=== PATIENT | female | born 1960 | race Caucasian/White ===

== ENCOUNTER → 2017-12-21 | Outpatient (CLI) | payer OTHER | END | disposition home or self-care (01) | LOC: US 09:04 | DX: K76.0 Fatty (change of) liver, not elsewhere classified (principal); R11.0 Nausea | CPT/HCPCS: 76700 ==

== ENCOUNTER → 2018-01-11 | Outpatient (CLI) | payer OTHER ==
[2018-01-11] MEDS: SINCALIDE IV (09:22)
[2018-01-11] MEDS: NORMAL SALINE IV (09:22)
== END | disposition home or self-care (01) ==
LOC: NM 07:20
DX: R10.84 Generalized abdominal pain (principal); R11.0 Nausea
CPT/HCPCS: 78226; 96374; 96375; A9537; J2805

== ENCOUNTER → 2019-05-18 | Outpatient (CLI) | payer BC ==
[2015-07-18 06:00] VITALS: BP 114/82
[~2019-05-18] MED LIST: CELE200C PO; CHOL500016 PO; CYAN50004 PO; FERR325T14 PO; LEVO100T PO; METF500T16 PO; OXYC1TAB15 PO; OXYC1TAB8 PO; PARO20TA99 PO; WARF-78 PO; WARF3TAB50 PO
--- NOTE | 2019-05-18 14:22 | RAD ---
STUDY: MRI of the right knee without contrast INDICATION: Medial knee pain for the past 2 months. COMPARISON: Correlation is made to right knee radiographs from 04/16/2019. TECHNIQUE: Multiplanar MR imaging of the right knee performed without the use of intravenous or intra-articular contrast. FINDINGS: The study is degraded by motion artifact as the patient had difficulty lying still due to pain. Menisci: Free edge tearing of the medial meniscal body as well as some articular sided irregularity of the meniscus in this region. The root attachments remain intact. There is some extrusion of the medial meniscal body into the medial gutter by 3 mm. No discrete tear of the lateral meniscus. Cruciate ligaments: The ACL and PCL are intact. Collateral ligaments: Some reactive edema-like signal deep to the medial collateral ligament on account of adjacent medial meniscal extrusion and medial compartment degenerative change. No acute injury of the medial or lateral collateral ligaments. Tendons: The extensor tendon complex is intact. The additional tendons at the knee are intact. Cartilage: Patellofemoral: Extensive high-grade to full-thickness chondral loss involving much of both facets as well as extending across the median ridge with multifocal subchondral edema/cystic change. Multifocal high-grade to full-thickness trochlear cartilage loss as well. Lateral compartment: Not well evaluated due to motion though there is chondrosis of both the weightbearing and nonweightbearing aspects. Medial compartment: Multifocal high-grade/full-thickness chondral loss involving both the weightbearing and posterior nonweightbearing aspects. Subchondral edema/cystic change seen at the far posteromedial aspect of the nonweightbearing medial femoral condyle, reference images 13 through 16, series 4. Bones: No acute fracture or suspicious marrow signal. Degenerative marrow signal changes as above. Miscellaneous: Small knee joint effusion. Moderate-sized Santillan's cyst. IMPRESSION: 1. Significantly degraded study by motion artifact as the patient had difficulty lying still due to pain. 2. Free edge tearing of the medial meniscal body as well as articular sided irregularity in this region without visualized full-thickness tear. Mild extrusion of the medial meniscal body into the medial gutter mainly due medial compartment arthrosis. 3. Tricompartmental degenerative changes with extensive high-grade/full-thickness chondral loss with associated subchondral edema/cystic change with most notable involvement of the patellofemoral and medial compartments, as above. 4. Small knee joint effusion and a moderate-sized Santillan's cyst. Electronically signed by: GILBERT MURPHY MD (05/18/2019 2:19 PM) [id number]
== END | disposition home or self-care (01) ==
LOC: MRI 09:55
PROVIDERS: ATTEND Orthopaedic Surgery
DX: S83.241A Other tear of medial meniscus, current injury, right knee, initial encounter (principal); M17.11 Unilateral primary osteoarthritis, right knee; M71.21 Synovial cyst of popliteal space [Baker], right knee; M25.461 Effusion, right knee; X58.XXXA Exposure to other specified factors, initial encounter; Y93.89 Activity, other specified; Y92.89 Other specified places as the place of occurrence of the external cause; Y99.8 Other external cause status
CPT/HCPCS: 73721

== ENCOUNTER → 2019-07-24 | Outpatient (CLI) | payer BC ==
[2015-07-18 06:00] VITALS: BP 114/82
[~2019-07-24] MED LIST changes: +KETO10TA PO; +LEVO125T5 PO
[2019-07-24 14:29] LABS: BASO # 0.1 x10^3/uL (0.0-0.2); BASO % 1 % (0-3); EOS # 0.1 x10^3/uL (0.0-0.7); EOS % 2 % (0-3); HEMATOCRIT 30.5 % (36.0-47.0); LYMPH # 1.4 x10^3/uL (1.0-4.8); LYMPH % 23 % (24-48); MEAN CORPUSCULAR HEMOGLOBIN 26 pg (25-35); MEAN CORPUSCULAR HGB CONC 33 g/dL (31-37); MEAN CORPUSCULAR VOLUME 80 fL (79-100); MONO # 0.5 x10^3/uL (0.0-1.1); MONO % 8 % (0-9); NEUT # 4.2 x10^3/uL (1.8-7.7); NEUT % 66 % (31-73); PLATELET COUNT 290 x10^3/uL (140-400); RED BLOOD COUNT 3.81 x10^6/uL (3.50-5.40); RED CELL DISTRIBUTION WIDTH 16.8 % (11.5-14.5); WHITE BLOOD COUNT 6.4 x10^3/uL (4.0-11.0)
[2019-07-24 14:33] LABS: BILIRUBIN,URINE NEGATIVE (NEG); CLARITY,URINE CLEAR; COLOR,URINE YELLOW; NITRITE,URINE NEGATIVE (NEG); PH,URINE 7.5; PROTEIN,URINE NEGATIVE (NEG-TRACE); UROBILINOGEN,URINE 0.2 mg/dL (0.2 mg/dL)
--- NOTE | 2019-07-24 14:33 | EKG ---
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
[2019-07-24 14:38] LABS: PROTHROMBIN TIME PATIENT 12.6 SEC (11.7-14.0)
[2019-07-24 14:40] LABS: ALBUMIN 3.5 g/dL (3.4-5.0); CALCIUM 8.3 mg/dL (8.5-10.1); CREATININE 0.8 mg/dL (0.6-1.0); GFR 73.4
[2019-07-24 14:44] LABS: BACTERIA,URINE MANY /HPF (0-FEW); RBC,URINE 0 /HPF (0-2); SQUAMOUS EPITHELIAL CELL,UR MANY /LPF
--- NOTE | 2019-07-25 12:39 | RAD ---
CHEST PA LATERAL History: Preop knee replacement. Comparison: July 17, 2015 Findings: No consolidation or pleural effusion. Normal heart size. Right midlung calcified granuloma. Left basilar linear atelectasis or scarring. Impression: 1. No acute cardiopulmonary process. Electronically signed by: Abdulaziz Vidal DO (07/25/2019 12:36 PM) [facility]
== END | disposition home or self-care (01) ==
LOC: SURGPAT 13:22
PROVIDERS: ATTEND Orthopaedic Surgery
DX: Z01.818 Encounter for other preprocedural examination (principal); M17.11 Unilateral primary osteoarthritis, right knee; Z96.641 Presence of right artificial hip joint
CPT/HCPCS: 36415; 71046; 80048; 81001; 82040; 82306; 85025; 85610; 85651; 85730; 87086; 87641; 93005

== ENCOUNTER → 2019-08-16 | Outpatient (CLI) | payer BC ==
[2019-08-10 06:01] VITALS: BP 129/77
[~2019-08-16] MED LIST changes: +GABA-585 PO; +OXYC5CAP PO; +WARF4TAB68 PO
[2019-08-16 13:44] LABS: BASO # 0.1 x10^3/uL (0.0-0.2); BASO % 1 % (0-3); EOS # 0.2 x10^3/uL (0.0-0.7); EOS % 2 % (0-3); HEMATOCRIT 28.1 % (36.0-47.0); LYMPH # 2.2 x10^3/uL (1.0-4.8); LYMPH % 23 % (24-48); MEAN CORPUSCULAR HEMOGLOBIN 25 pg (25-35); MEAN CORPUSCULAR HGB CONC 32 g/dL (31-37); MEAN CORPUSCULAR VOLUME 78 fL (79-100); MONO # 0.9 x10^3/uL (0.0-1.1); MONO % 9 % (0-9); NEUT # 6.2 x10^3/uL (1.8-7.7); NEUT % 65 % (31-73); PLATELET COUNT 459 x10^3/uL (140-400); RED BLOOD COUNT 3.59 x10^6/uL (3.50-5.40); RED CELL DISTRIBUTION WIDTH 16.3 % (11.5-14.5); WHITE BLOOD COUNT 9.5 x10^3/uL (4.0-11.0)
== END | disposition home or self-care (01) ==
LOC: LAB 13:27
PROVIDERS: ATTEND Physician Assistant
DX: Z96.641 Presence of right artificial hip joint (principal)
CPT/HCPCS: 36415; 85025

== ENCOUNTER 2021-05-01 19:05 | Inpatient (IN) | payer BC ==
[~2021-05-01] VITALS: Ht 162.6 cm; Wt 105.6 kg
[~2021-05-01 19:05] MED LIST changes: +LEVO-101 PO; -LEVO100T PO; -WARF-78 PO; +WARF5TAB2 PO
--- NOTE | 2021-05-01 19:55 | PHYS DOC ---
Past Medical History Smoking Status: Never Smoker General Adult EDM: Chief Complaint: ABNORMAL LABS HPI: HPI: 61 yo F PMH hypothyroidim, presents to the ed sent by pcp with her , her consent concerning for normal labs with a hemoglobin of 6.3. Pt reports "anytime I move I can't breath," symptoms been persistent and worsening for the past 2 to 3 months. Patient states she has exertional dyspnea that causes palpitations and a racing heart rate. No history of cardiomyopathy, coronary artery disease or congestive heart failure. Was told her hemoglobin today was 6.3. Had a colonoscopy by Dr. Johnson in December 2020 and was vaccinated for Covid in December 2020. Patient did have Covid in May 2020. Has had 2 normal brown bowel movements today, denies any melena or hematochezia. No history of GI bleeding. Reports blood transfusion 40 years ago after childbirth. Was on oral iron but stopped it after the prescription was not continued. Patient denies any hemoptysis, hematuria or hematemesis. Review of Systems: Review of Systems: Constitutional: Denies fever or chills. [] Eyes: Denies change in visual acuity. [] HENT: Denies nasal congestion or sore throat. [] Respiratory: Denies cough or hemoptysis Cardiovascular: Denies chest pain or edema. [] GI: Denies abdominal pain, nausea, vomiting, bloody stools or diarrhea. [] : Denies dysuria or hematuria or vaginal bleeding Musculoskeletal: Denies back pain or joint pain. [] Integument: Denies rash or diaphoresis Neurologic: Denies headache, focal weakness or sensory changes. [] Endocrine: Denies polyuria or polydipsia. [] Lymphatic: Denies swollen glands. [] Psychiatric: Denies depression or anxiety. [] Heart Score: C/O Chest Pain: No Risk Factors: Risk Factors: DM, Current or recent (<one month) smoker, HTN, HLP, family h istory of CAD, obesity. Risk Scores: Score 0 - 3: 2.5% MACE over next 6 weeks - Discharge Home Score 4 - 6: 20.3% MACE over next 6 weeks - Admit for Clinical Observation Score 7 - 10: 72.7% MACE over next 6 weeks - Early Invasive Strategies Allergies: Allergies: Allergies Coded Allergies Type Severity Reaction Last Updated Verified No Known Drug Allergies 08/07/19 No Physical Exam: PE: Constitutional: Well developed, well nourished, no acute distress, non-toxic appearance. HENT: Normocephalic, atraumatic, Eyes: EOMI, conjunctiva normal, no discharge. Neck: Normal range of motion, supple, Cardiovascular: S1/2 present, regular rhythm Lungs & Thorax: Speaking in full sentences, bilateral equal chest rise, no tachypnea or increased work of breathing Abdomen: soft, no tenderness, Skin: Warm, dry, Extremities: No tenderness, no cyanosis, no lower extremity edema Neurologic: Alert and oriented X 3, normal motor function, normal sensory function, no focal deficits noted. [] Psychologic: Affect normal, judgement normal, mood normal. [] EKG: EKG: [] Radiology/Procedures: Radiology/Procedures: IMAGING REPORT Signed PATIENT: FABRICE TYUNT: [id number] : 1960 LOCATION: ER AGE: 61 SEX: F EXAM STATUS: PRE ER ORD. PHYSICIAN: BALTAZAR KAUR DO REASON: anemia PROCEDURE: CHEST AP ONLY INDICATION: Reason: anemia / Spl. Instructions: / History: COMPARISON: July 24, 2019 FINDINGS: Single view of chest obtained. Enlarged cardiomediastinal silhouette. The left lung base is obscured by the overlying cardiac silhouette. Mild haziness at the right lung base. No definite consolidation elsewhere in the lungs. IMPRESSION: * Enlarged cardiomediastinal silhouette. * Mild haziness at the lung bases which could be from overlap of structures or atelectasis but this could obscure a region of infiltrate. No definite consolidation elsewhere in the lungs. Electronically signed by: Wendy Rodriguez MD (05/01/2021 8:25 PM) [id number] DICTATED and SIGNED BY: WENDY RODRIGUEZ MD DATE: 05/01/2120223830PRP8 0 Course & Med Decision Making: Course & Med Decision Making Pertinent Labs and Imaging studies reviewed. (See chart for details) Concern for symptomatic exertional anemia in the setting of microcytic/iron deficiency anemia. 1 unit prbc ordered and I spoke to patient's primary care physician Dr. Rodriguez. Will likely schedule outpatient EGD with GI. Will admit for further medical management. Patient stable at time of admission and she and her agree with this plan. I have spoken with the patient and/or caregivers. I have explained the patient's condition, diagnosis and treatment plan based on the information available to me at this time. I have answered the patient's and/or caregivers questions and answered any concerns. The patient and/or caregivers have as good an understanding of the patient's diagnosis, condition and treatment plan as can be expected at this point. The patient has been stabilized within the capability of the emergency department. The patient will be transported for further care and management or will be moved to an observation or inpatient service. I have communicated with the staff or medical practitioner taking over this patient's care. Char Disclaimer: Char Disclaimer: This electronic medical record was generated, in whole or in part, using a voice recognition dictation system. Departure Departure Impression: Primary Impression: Exertional dyspnea Additional Impression: Microcytic anemia Disposition: ADMITTED INPATIENT Admitting Physician: Kendell Rodriguez Condition: STABLE Referrals: KENDELL RODRIGUEZ MD (PCP) BALTAZAR KAUR DO May 01, 2021 19:54
[2021-05-01 20:05] LABS: BASO # 0.1 x10^3/uL (0.0-0.2); BASO % 1 % (0-3); EOS # 0.1 x10^3/uL (0.0-0.7); EOS % 1 % (0-3); LYMPH # 2.3 x10^3/uL (1.0-4.8); LYMPH % 30 % (24-48); MEAN CORPUSCULAR HEMOGLOBIN 21 pg (25-35); MEAN CORPUSCULAR HGB CONC 31 g/dL (31-37); MEAN CORPUSCULAR VOLUME 69 fL (79-100); MONO # 0.7 x10^3/uL (0.0-1.1); MONO % 10 % (0-9); NEUT # 4.5 x10^3/uL (1.8-7.7); NEUT % 58 % (31-73); PLATELET COUNT 351 x10^3/uL (140-400); RED BLOOD COUNT 2.98 x10^6/uL (3.50-5.40); RED CELL DISTRIBUTION WIDTH 18.3 % (11.5-14.5); WHITE BLOOD COUNT 7.7 x10^3/uL (4.0-11.0)
[2021-05-01 20:07] LABS: HEMOGLOBIN 6.3 g/dL (12.0-15.5)
[2021-05-01 20:08] LABS: HEMATOCRIT 20.4 % (36.0-47.0)
[2021-05-01 20:16] LABS: CALCIUM 8.7 mg/dL (8.5-10.1); CREATININE 0.9 mg/dL (0.6-1.0); GFR 63.7; POTASSIUM 4.1 mmol/L (3.5-5.1)
[2021-05-01 20:22] LABS: ALBUMIN 3.6 g/dL (3.4-5.0); ALBUMIN/GLOBULIN RATIO 1.2 (1.0-1.7); TOTAL BILIRUBIN 0.3 mg/dL (0.2-1.0); TOTAL PROTEIN 6.7 g/dL (6.4-8.2)
[2021-05-01 20:27] LABS: PROTHROMBIN TIME PATIENT 15.3 SEC (11.7-14.0)
--- NOTE | 2021-05-01 20:28 | RAD ---
INDICATION: Reason: anemia / Spl. Instructions: / History: COMPARISON: July 24, 2019 FINDINGS: Single view of chest obtained. Enlarged cardiomediastinal silhouette. The left lung base is obscured by the overlying cardiac silhouette. Mild haziness at the right lung base. No definite consolidation elsewhere in the lungs. IMPRESSION: * Enlarged cardiomediastinal silhouette. * Mild haziness at the lung bases which could be from overlap of structures or atelectasis but this could obscure a region of infiltrate. No definite consolidation elsewhere in the lungs. Electronically signed by: Hans Franz MD (05/01/2021 8:25 PM) [id number]
[2021-05-01 23:00] VITALS: BP 117/53
[2021-05-01] MEDS ORDERED: CONTRAST GIVEN. MC PRN (23:30)
[2021-05-01] MEDS ORDERED: IOHEXOL 350 MG/ML 100 ML VIAL. IV ONE (23:30)
[2021-05-01 23:45] VITALS: BP 91/45
[2021-05-02] VITALS (7 sets, daily range): BP systolic 92–163; BP diastolic 50–67
--- NOTE | 2021-05-02 00:05 | RAD ---
EXAM: CT ANGIOGRAPHY OF THE CHEST WITH AND WITHOUT CONTRAST. HISTORY: Left chest pain. TECHNIQUE: Computed tomographic angiography of the chest was performed before and after the intraveno us administration of iodinated contrast. 3-D maximum intensity projections were also performed. One o r more of the following individualized dose reduction techniques were utilized for this examination: 1. Automated exposure control. 2. Adjustment of the mA and/or kV according to patient size. 3. Use of iterative reconstruction technique. COMPARISON: None. FINDINGS: Images of the upper abdomen reveal no acute abnormality. There are calcified granulomas in the spleen. There is a large hiatal hernia. Bone windows reveal no suspicious lesions. No pulmonary emboli are identified. There is no aortic dissection or aneurysm. There are no pathologically enlarged mediastinal or axillary lymph nodes. There is no pleural or niurka cardial effusion. The heart is not enlarged. Lung windows reveal no infiltrates. There is mild basilar atelectasis. IMPRESSION: 1. No pulmonary embolism. 2. Large hiatal hernia. Electronically signed by: Daryl Sanabria MD (05/02/2021 12:02 AM) [facility]
[2021-05-02] MEDS ORDERED: LEVO137T3 PO (00:07)
[2021-05-02] MEDS ORDERED: PRAM0.255 PO (00:11)
[2021-05-02] MEDS ORDERED: ONDANSETRON ODT 4 MG TAB.RAPDIS. PO ONE (03:15)
[2021-05-02] MEDS ORDERED: PRAMIPEXOLE 0.25 MG TABLET. PO PRN (08:45)
[2021-05-02] MEDS ORDERED: ACETAMINOPHEN 325 MG TABLET. PO PRN (08:45)
[2021-05-02] MEDS ORDERED: PARoxetine 10 MG TABLET PO SCH (09:00)
[2021-05-02] MEDS ORDERED: LEVOTHYROXINE 137 MCG TABLET PO SCH (09:00)
[2021-05-02] MEDS ORDERED: FERR325T14 PO (12:18)
[2021-05-02 12:44] LABS: BASO % 1 % (0-3); EOS # 0.1 x10^3/uL (0.0-0.7); EOS % 2 % (0-3); HEMATOCRIT 22.9 % (36.0-47.0); HEMOGLOBIN 7.2 g/dL (12.0-15.5); LYMPH # 1.4 x10^3/uL (1.0-4.8); LYMPH % 27 % (24-48); MEAN CORPUSCULAR HEMOGLOBIN 23 pg (25-35); MEAN CORPUSCULAR HGB CONC 32 g/dL (31-37); MEAN CORPUSCULAR VOLUME 71 fL (79-100); MONO # 0.5 x10^3/uL (0.0-1.1); MONO % 10 % (0-9); NEUT % 60 % (31-73); PLATELET COUNT 315 x10^3/uL (140-400); RED BLOOD COUNT 3.21 x10^6/uL (3.50-5.40); RED CELL DISTRIBUTION WIDTH 18.9 % (11.5-14.5)
--- NOTE | 2021-05-02 12:47 | PDOC2 ---
CONSULT Date of Consult Date of Consult DATE: 05/02/21 TIME: 12:42 Reason for Consult Reason for Consult: anemia History of Present Illness Reason for Visit: This is a 61-year-old female who presents with an abnormal labs showing significant anemia with hemoglobin of 6.3. She is noticed over the past few days to weeks increasing dyspnea on exertion and irregular heartbeat. She had some dark stools in the past but has not been on a regular basis. She relates that she has been anemic in the past but never to this degree. No one's been able to figure out why she is anemic. She does not menstruate. She does not have any overt bleeding anywhere except the dark stools as mentioned above. She does describe regular indigestion and heartburn for which she takes [id number] medications. Also she describes some nocturnal reflux symptoms when she lays flat in bed. She was not aware of her hiatal hernia which was found on her CT last night. She has not had a previous EGD but did have a screening colonoscopy earlier this year that was reportedly negative. Because she was known to be anemic a celiac blood test was recommended and apparently was ordered but we don't have those records. She denies dysphagia, hematemesis, hematochezia, change in bowel pattern. Past Medical History Heme/Onc: Anemia NOS Endocrine: Hypothyroidism Past Surgical History Past Surgical History: Hysterectomy Social History ALCOHOL: occassional Drugs: None Domestic Violence: Neg Current Problem List Problem List Problems Medical Problems: (1) Exertional dyspnea Status: Acute (2) Microcytic anemia Status: Acute Current Medications Current Medications Current Medications Iohexol (Omnipaque 350 Mg/ml) 100 ml 1X ONCE IV Last administered on 05/01/21at 23:26; Start 05/01/21 at 23:30; Stop 05/01/21 at 23:31; Status DC Info (CONTRAST GIVEN -- Rx MONITORING) 1 each PRN DAILY PRN MC SEE COMMENTS; Start 05/01/21 at 23:30; Stop 05/03/21 at 23:29 Ondansetron HCl (Zofran Odt) 4 mg 1X ONCE PO Last administered on 05/02/21at 03:28; Start 05/02/21 at 03:15; Stop 05/02/21 at 03:16; Status DC Acetaminophen (Tylenol) 650 mg PRN Q6HRS PRN PO MILD PAIN / TEMP > 100.3'F Last administered on 05/02/21at 09:07; Start 05/02/21 at 08:45 Levothyroxine Sodium (Synthroid) 137 mcg DAILY06 PO Last administered on 05/02/21at 09:07; Start 05/02/21 at 09:00 Paroxetine HCl (Paxil) 30 mg DAILY PO ; Start 05/02/21 at 09:00 Pramipexole Dihydrochloride (miraPEX) 0.25 mg PRN QHS PRN PO restless leg syndrome; Start 05/02/21 at 08:45 Active Scripts Active Ferrous Sulfate 325 Mg Tablet 1 Tab PO BID 30 Days Reported Mirapex (Pramipexole Di-Hcl) 0.25 Mg Tablet 1 Tab PO DAILY PRN Levothyroxine Sodium 137 Mcg Tablet 1 Tab PO DAILY Paxil (Paroxetine Hcl) 20 Mg Tablet 30 Mg PO DAILY Last dose given: 8:30 a.m. Next dose due: 07/19/15 at 08:30 a.m. Allergies Allergies: Coded Allergies: No Known Drug Allergies (Unverified , 08/07/19) Physical Exam General: Alert, Oriented X3, Cooperative HEENT: Atraumatic, PERRLA Lungs: Clear to auscultation Heart: Regular rate, Normal S1, Normal S2 Abdomen: Normal bowel sounds, Soft, No tenderness, No hepatosplenomegaly, No masses Extremities: No clubbing Neuro: Normal speech Psych/Mental Status: Mental status NL Vitals VITALS Vital Signs Date Time Temp Pulse Resp B/P (MAP) Pulse Ox O2 Delivery O2 Flow Rate FiO2 05/02/21 11:00 98.4 65 16 107/59 (75) 96 98.4 05/02/21 07:00 Room Air Labs Labs Laboratory Tests Test 05/01/21 19:55 05/01/21 20:05 White Blood Count 7.7 x10^3/uL (4.0-11.0) Red Blood Count 2.98 x10^6/uL (3.50-5.40) Hemoglobin 6.3 g/dL (12.0-15.5) Hematocrit 20.4 % (36.0-47.0) Mean Corpuscular Volume 69 fL (79-100) Mean Corpuscular Hemoglobin 21 pg (25-35) Mean Corpuscular Hemoglobin Concent 31 g/dL (31-37) Red Cell Distribution Width 18.3 % (11.5-14.5) Platelet Count 351 x10^3/uL (140-400) Neutrophils (%) (Auto) 58 % (31-73) Lymphocytes (%) (Auto) 30 % (24-48) Monocytes (%) (Auto) 10 % (0-9) Eosinophils (%) (Auto) 1 % (0-3) Basophils (%) (Auto) 1 % (0-3) Neutrophils # (Auto) 4.5 x10^3/uL (1.8-7.7) Lymphocytes # (Auto) 2.3 x10^3/uL (1.0-4.8) Monocytes # (Auto) 0.7 x10^3/uL (0.0-1.1) Eosinophils # (Auto) 0.1 x10^3/uL (0.0-0.7) Basophils # (Auto) 0.1 x10^3/uL (0.0-0.2) Sodium Level 143 mmol/L (136-145) Potassium Level 4.1 mmol/L (3.5-5.1) Chloride Level 105 mmol/L (98-107) Carbon Dioxide Level 25 mmol/L (21-32) Anion Gap 13 (6-14) Blood Urea Nitrogen 15 mg/dL (7-20) Creatinine 0.9 mg/dL (0.6-1.0) Estimated GFR (Cockcroft-Gault) 63.7 BUN/Creatinine Ratio 17 (6-20) Glucose Level 90 mg/dL (70-99) Calcium Level 8.7 mg/dL (8.5-10.1) Total Bilirubin 0.3 mg/dL (0.2-1.0) Aspartate Amino Transf (AST/SGOT) 15 U/L (15-37) Alanine Aminotransferase (ALT/SGPT) 32 U/L (14-59) Alkaline Phosphatase 118 U/L (46-116) Total Protein 6.7 g/dL (6.4-8.2) Albumin 3.6 g/dL (3.4-5.0) Albumin/Globulin Ratio 1.2 (1.0-1.7) Prothrombin Time 15.3 SEC (11.7-14.0) Prothromb Time International Ratio 1.2 (0.8-1.1) Activated Partial Thromboplast Time 28 SEC (24-38) Laboratory Tests Test 05/01/21 19:55 05/01/21 20:05 White Blood Count 7.7 x10^3/uL (4.0-11.0) Red Blood Count 2.98 x10^6/uL (3.50-5.40) Hemoglobin 6.3 g/dL (12.0-15.5) Hematocrit 20.4 % (36.0-47.0) Mean Corpuscular Volume 69 fL (79-100) Mean Corpuscular Hemoglobin 21 pg (25-35) Mean Corpuscular Hemoglobin Concent 31 g/dL (31-37) Red Cell Distribution Width 18.3 % (11.5-14.5) Platelet Count 351 x10^3/uL (140-400) Neutrophils (%) (Auto) 58 % (31-73) Lymphocytes (%) (Auto) 30 % (24-48) Monocytes (%) (Auto) 10 % (0-9) Eosinophils (%) (Auto) 1 % (0-3) Basophils (%) (Auto) 1 % (0-3) Neutrophils # (Auto) 4.5 x10^3/uL (1.8-7.7) Lymphocytes # (Auto) 2.3 x10^3/uL (1.0-4.8) Monocytes # (Auto) 0.7 x10^3/uL (0.0-1.1) Eosinophils # (Auto) 0.1 x10^3/uL (0.0-0.7) Basophils # (Auto) 0.1 x10^3/uL (0.0-0.2) Sodium Level 143 mmol/L (136-145) Potassium Level 4.1 mmol/L (3.5-5.1) Chloride Level 105 mmol/L (98-107) Carbon Dioxide Level 25 mmol/L (21-32) Anion Gap 13 (6-14) Blood Urea Nitrogen 15 mg/dL (7-20) Creatinine 0.9 mg/dL (0.6-1.0) Estimated GFR (Cockcroft-Gault) 63.7 BUN/Creatinine Ratio 17 (6-20) Glucose Level 90 mg/dL (70-99) Calcium Level 8.7 mg/dL (8.5-10.1) Total Bilirubin 0.3 mg/dL (0.2-1.0) Aspartate Amino Transf (AST/SGOT) 15 U/L (15-37) Alanine Aminotransferase (ALT/SGPT) 32 U/L (14-59) Alkaline Phosphatase 118 U/L (46-116) Total Protein 6.7 g/dL (6.4-8.2) Albumin 3.6 g/dL (3.4-5.0) Albumin/Globulin Ratio 1.2 (1.0-1.7) Prothrombin Time 15.3 SEC (11.7-14.0) Prothromb Time International Ratio 1.2 (0.8-1.1) Activated Partial Thromboplast Time 28 SEC (24-38) Images Images EXAM: CT ANGIOGRAPHY OF THE CHEST WITH AND WITHOUT CONTRAST. HISTORY: Left chest pain. TECHNIQUE: Computed tomographic angiography of the chest was performed before and after the intravenous administration of iodinated contrast. 3-D maximum intensity projections were also performed. One or more of the following individualized dose reduction techniques were utilized for this examination: 1. Automated exposure control. 2. Adjustment of the mA and/or kV according to patient size. 3. Use of iterative reconstruction technique. COMPARISON: None. FINDINGS: Images of the upper abdomen reveal no acute abnormality. There are calcified granulomas in the spleen. There is a large hiatal hernia. Bone windows reveal no suspicious lesions. No pulmonary emboli are identified. There is no aortic dissection or aneurysm. There are no pathologically enlarged mediastinal or axillary lymph nodes. There is no pleural or pericardial effusion. The heart is not enlarged. Lung windows reveal no infiltrates. There is mild basilar atelectasis. IMPRESSION: 1. No pulmonary embolism. 2. Large hiatal hernia. Assessment/Plan Assessment/Plan Profound microcytic anemia. She has had an anemia in the past but never to this degree. She had some dark stools in the past. She does have indigestion, heartburn and acid reflux symptoms and now by CT is known to have a large hiatal hernia. It is feasible that upper GI blood loss occultly has caused this anemia from esophagitis, Kang's, peptic ulcer disease etc. She could also have celiac disease and apparently that has been pursued but we don't know the results Fortunately she had a recent colonoscopy which excludes polyps or cancer as a contributor to this anemia. Plan: Agree with transfusion Need to start on iron supplementation Need to start on daily pantoprazole Elective EGD is warranted. This will be arranged in the outpatient setting with Dr. Mckinnon after discharge XIN CHOW MD May 02, 2021 12:47
[2021-05-02] MEDS ORDERED: PANTOPRAZOLE 40 MG TABLET.DR. PO SCH (13:00)
--- NOTE | 2021-05-02 13:06 | DS ---
DATE OF DISCHARGE: 05/02/2021 PRIMARY DIAGNOSIS: Symptomatic microcytic anemia. ADDITIONAL DIAGNOSES: Hypothyroidism, restless legs. CHIEF COMPLAINT AND HISTORY OF PRESENT ILLNESS: This 61-year-old female admitted with exertional dyspnea, lightheadedness, palpitations and a hemoglobin of 6.3 with microcytic RBC indices. She admitted to occasional melena off and on over the last month and had had a colonoscopy back in December of this year that was unremarkable. SUMMARY OF STAY: The patient was admitted, typed, crossed and transfused with 1 unit of packed red blood cells. Repeat H and H were pending at the time of this dictation, but were ordered as I tried to order it again and stated it had already been ordered. She was symptomatically much improved. It was felt she would need further outpatient GI workup including EGD and that will be set up on followup this coming week in the office with Dr. Franz. DISPOSITION: The patient is discharged to home. DIET: Regular diet. ACTIVITY: As tolerated. FOLLOWUP: Office of Dr. Franz here in the next week. HOME MEDICATIONS: Will be that of regular home meds plus ferrous sulfate 325 b.i.d. with food. CECILIA/SARAI DR: CECILIA/lorenza TID: [id number] CC: KENDELL FRANZ MD
--- NOTE | 2021-05-02 13:58 | NUR ---
Discharge Note: FABRICE PERSON J5 BRIMLEY Discharge instructions and discharge home medications reviewed with the patient and a copy given. All questions have been answered and understanding verbalized. The following instructions and handouts were given: Home meds as directed EGD as out patient with Dr. Mckinnon Follow up with Dr. Franz next week Discontinued lines and drains: peripheral IV intact. patient tolerated removal, no complications noted Patient discharged to home with self care ambulatory accompanied by the patient's spouse, Dr. Person at 1345. Addendum: 05/02/21 at 1528 by ROSALIO MONTANA RN Pantoprazole 40 mg tab prescription called to [facility] pharmacy at 1523.
[2021-05-02 14:00] LABS: ANISOCYTOSIS SLIGHT; HYPOCHROMIA MOD; MICROCYTOSIS MOD; OVALOCYTES MOD; PLT ESTIMATE ADEQUATE (ADEQUATE); POLYCHROMASIA SLIGHT; TEAR DROP CELLS OCC
--- NOTE | 2021-05-02 14:08 | HP ---
ADMIT DATE: 05/02/2021 ADMISSION HISTORY AND PHYSICAL CHIEF COMPLAINT AND HISTORY OF PRESENT ILLNESS: This 61-year-old female with a past history of hypothyroidism, presented to the Emergency Room with a known hemoglobin of 6.3 and no exertion potential whatsoever. She will get very short of breath and lightheaded with any sort of activity and this has been going on for a little while. She does relate some melanotic stools over the last month or so intermittently. When questioned about abdominal pain, she has had some sort of upper abdominal swishing like a washing machine off and on, but denies it is related to food in anyway. She was admitted for symptomatic microcytic anemia. Interestingly, she has had a colonoscopy back earlier this year, which was negative for any sort of pathology. PAST MEDICAL HISTORY: Remarkable for hypothyroidism, restless legs. MEDICATIONS: Brought with the patient, listed on the computer and have been addressed. ALLERGIES: She has no known drug allergies. SOCIAL HISTORY: Noncontributory. FAMILY HISTORY: Noncontributory. REVIEW OF SYSTEMS: As mentioned above. PHYSICAL EXAMINATION: GENERAL: She is a well-developed, well-nourished female who does appear still somewhat pale. VITAL SIGNS: Stable. She is afebrile. HEAD, EYES, EARS, NOSE AND THROAT: Remarkable for pallor of conjunctivae. NECK: Supple without thyromegaly. CHEST: Clear to auscultation and percussion. HEART: Regular rate and rhythm without S3, S4 or murmur. ABDOMEN: Soft, nontender, without hepatosplenomegaly or masses. EXTREMITIES: Without cyanosis, clubbing or edema. NEUROLOGIC: She is intact. IMPRESSION: Symptomatic iron deficiency anemia with improved symptomatology following transfusion of 1 unit packed red blood cells. PLAN: Repeat CBC is ordered for this morning, after that is available or even before she can be dismissed. Follow up as an outpatient where she will likely need an EGD. MARNE/DAGO DR: Ihsan TID: [id number]
== END 2021-05-02 13:45 | disposition home or self-care (01) | DRG 812 ==
LOC: ER 19:05 → 5 NORTH 22:01
PROVIDERS: ADMIT Family Medicine; ATTEND Family Medicine
PROC: 30233N1 Transfusion of Nonautologous Red Blood Cells into Peripheral Vein, Percutaneous Approach (ICD-10-PCS; principal; 2021-05-01)
DX: D50.0 Iron deficiency anemia secondary to blood loss (chronic) (principal); E03.9 Hypothyroidism, unspecified; G25.81 Restless legs syndrome; K21.00 Gastro-esophageal reflux disease with esophagitis, without bleeding; Z86.16 Personal history of COVID-19; Z90.710 Acquired absence of both cervix and uterus
CPT/HCPCS: 36415; 71045; 71275; 80053; 85025; 85610; 85730; 86850; 86900; 86901; 86920; P9016; Q9967; 99285-25; G0378

== ENCOUNTER → 2021-12-28 | Outpatient (CLI) | payer BC ==
[2021-05-02 11:00] VITALS: BP 107/59
[~2021-12-28] MED LIST changes: +CHOL500050 PO; +LEVO137T3 PO; +LEVO175T5 PO; +MULT-445 PO; +PARO30TA3 PO; +PRAM0.255 PO
== END ==
LOC: OPSVCOP 14:43
PROVIDERS: ATTEND Podiatrist
DX: Z01.812 Encounter for preprocedural laboratory examination (principal); Z20.822 Contact with and (suspected) exposure to COVID-19; M76.822 Posterior tibial tendinitis, left leg; M21.40 Flat foot [pes planus] (acquired), unspecified foot; S93.429A Sprain of deltoid ligament of unspecified ankle, initial encounter; X58.XXXA Exposure to other specified factors, initial encounter; Y93.89 Activity, other specified; Y92.89 Other specified places as the place of occurrence of the external cause; Y99.8 Other external cause status
CPT/HCPCS: U0003

== ENCOUNTER 2021-12-30 07:51 | Day surgery (SDC) | payer BC ==
[~2021-12-30] VITALS: Ht 166.4 cm; Wt 90.7 kg
[~2021-12-30 07:51] MED LIST changes: +BUPIVACAINE MPF 0.25% 30 ML VIAL. ONE; +HYDROmorphone 2 MG/ML INJ. IVP PRN; +IV RINGERS,LACTATED 1000ML 1,000 ML IV SCH; +MORPHINE SULFATE 2 MG/ML INJ. IVP PRN; +PROCHLORPERAZINE 10 MG/2 ML VIAL. IVP PRN; +fentaNYL PF VIAL 100 MCG/2 ML VIAL IVP PRN
[2021-12-30] MEDS ORDERED: MIDAZOLAM HCL/PF 2 MG/2 ML VIAL. ONE (08:56)
[2021-12-30] MEDS ORDERED: ROPIVacaine 0.5% PF 20 ML VIAL. ONE (08:56)
--- NOTE | 2021-12-30 09:15 | PDOC2 ---
CONSULT Date of Consult Date of Consult DATE: 12/30/21 TIME: 09:11 History of Present Illness Reason for Visit: Patient is here today for left ankle surgery with Dr. Urbina Doing well when seen, no complaints. Denies any hx DM, CAD, CHF, CVA, Renal failure Past Medical History Heme/Onc: Anemia NOS Endocrine: Hypothyroidism Past Surgical History Past Surgical History: Hysterectomy Social History ALCOHOL: occassional Drugs: None Domestic Violence: Neg Current Medications Current Medications Current Medications Fentanyl Citrate (Fentanyl 2ml Vial) 25 mcg PRN Q5MIN PRN IVP MILD PAIN 1-3; Start 12/30/21 at 06:00; Stop 12/31/21 at 05:59 Fentanyl Citrate (Fentanyl 2ml Vial) 50 mcg PRN Q5MIN PRN IVP MODERATE PAIN 4- 6; Start 12/30/21 at 06:00; Stop 12/31/21 at 05:59 Morphine Sulfate (Morphine Sulfate) 1 mg PRN Q10MIN PRN IVP SEVERE PAIN 7-10; Start 12/30/21 at 06:00; Stop 12/31/21 at 05:59 Ringer's Solution 1,000 ml @ 30 mls/hr Q24H IV ; Start 12/30/21 at 06:00; Stop 12/30/21 at 17:59 Hydromorphone HCl (Dilaudid) 0.5 mg PRN Q10MIN PRN IVP SEVERE PAIN 7-10, 2nd CHOICE; Start 12/30/21 at 06:00; Stop 12/31/21 at 05:59 Prochlorperazine Edisylate (Compazine) 5 mg PACU PRN PRN IVP NAUSEA, MRX1; Start 12/30/21 at 06:00; Stop 12/31/21 at 05:59 Cefazolin Sodium/ Dextrose 50 ml @ 100 mls/hr 1X PREOP PRN IV PRIOR TO PROCEDURE; Start 12/30/21 at 06:00; Stop 12/30/21 at 18:00 Bupivacaine HCl (Sensorcaine Mpf 0.25%) 30 ml STK-MED ONCE .ROUTE ; Start 12/30/21 at 07:18; Stop 12/30/21 at 07:18; Status DC Midazolam HCl (Versed) 2 mg STK-MED ONCE .ROUTE ; Start 12/30/21 at 08:56; Stop 12/30/21 at 08:56; Status DC Ropivacaine (Naropin 0.5%) 20 ml STK-MED ONCE .ROUTE ; Start 12/30/21 at 08:56; Stop 12/30/21 at 08:56; Status DC Active Scripts Active Reported Multivitamins (Multivitamin) 1 Each Tablet 1 Tab PO DAILY Vitamin D3 (Cholecalciferol (Vitamin D3)) 1,250 Mcg Capsule 5,000 Mcg PO DAILY Paroxetine Hcl 30 Mg Tablet 1 Tab PO DAILY Levothyroxine Sodium 175 Mcg Tablet 1 Tab PO DAILY Mirapex (Pramipexole Di-Hcl) 0.25 Mg Tablet 1 Tab PO DAILY PRN Allergies Allergies: Coded Allergies: No Known Drug Allergies (Unverified , 12/24/21) Physical Exam General: Alert, Oriented X3, Cooperative HEENT: PERRLA Lungs: Clear to auscultation Heart: Regular rate, Normal S1 Abdomen: Normal bowel sounds, Soft, No tenderness Extremities: Normal pulses Vitals VITALS Vital Signs Date Time Temp Pulse Resp B/P (MAP) Pulse Ox O2 Delivery O2 Flow Rate FiO2 12/30/21 08:31 98.2 78 15 150/80 93 Room Air 98.2 Assessment/Plan Assessment/Plan Left Ankle Surgery Patient here for left ankle surgery. Ok to proceed from hospitalist perspective. GRISEL Danielle MD Dec 30, 2021 09:15
[2021-12-30] MEDS ORDERED: LIDOCAINE 2% PF 5 ML VIAL. ONE (09:34)
[2021-12-30] MEDS ORDERED: ONDANSETRON PF 4 MG/2 ML VIAL. ONE (09:34)
[2021-12-30] MEDS ORDERED: SEVOFLURANE > 120 MINUTES. IH ONE (09:34)
[2021-12-30] MEDS ORDERED: PROPOFOL 10 MG/ML (20ML) VIAL. IV ONE (09:34)
[2021-12-30] MEDS ORDERED: DEXAMETHASONE SOD PHOS 4 MG/ML VIAL ONE (09:34)
[2021-12-30] MEDS ORDERED: fentaNYL PF VIAL 100 MCG/2 ML VIAL ONE ×2 (09:35→14:40)
[2021-12-30] MEDS ORDERED: KETAMINE HCL IN NACL, ISO-OSM 50 MG/5 ML SYRINGE ONE (09:53)
[2021-12-30] MEDS ORDERED: PHENYLEPHRINE in 0.9% NACL PF 1 MG/10 ML SYRINGE. IV ONE (09:58)
[2021-12-30] MEDS ORDERED: PHENYLEPHRINE 10 MG/ML VIAL. ONE (10:03)
[2021-12-30] MEDS ORDERED: HYDROmorphone 2 MG/ML INJ. ONE (11:24)
[2021-12-30] MEDS ORDERED: GELATIN SPONGE SIZE 100. ONE (11:42)
[2021-12-30] MEDS ORDERED: FAMOTIDINE 20 MG/2 ML VIAL ONE (12:32)
--- NOTE | 2021-12-30 13:34 | PDOC4 ---
OPERATIVE NOTE Date: Date: Dec 30, 2021 Pre-Op Diagnosis: Left pes planus deformity, subsequent PTTD, stage II/III, ankle equinus Post-Op Diagnosis: Same as above Procedure Performed: Left ALLISON, cotton osteotomy, medializing calcaneal osteotomy, Garcia osteotomy, PT tendon debridement Surgeon: Pardeep Noble DPM Anesthesia Type: General anesthesia with a popliteal/saphenous block preoperatively Blood Loss: 50 cc Specimans Obtained: None Findings: Upon weightbearing, the calcaneus everted to 5 degrees, increased calcaneal cuboid abduction angle, TN uncoverage over 50%, reduced arch height more so clinically than radiographically. No significant periarticular osteophyte, arthrosis changes to the CC J. Complications: None Operative Note: Under mild sedation, and Left lower extremity popliteal/saphenous block preoperatively, patient was brought into the operating room and placed on the operating table in the supine position. A formal timeout was performed to confirm patient's identity, procedure and procedure site. Then the following IV anesthesia and antibiotics, a well-padded left thigh tourniquet was placed. The left lower extremity was then prepped, scrubbed and draped using aseptic techniques. The left lower extremity was then exsanguinated and then the pressure was inflated to 250 mmHg. Then the incision was directed to the left posterior distal Achilles where three x 3mm stab incisions were carried out at 2 cm, 5 cm and 8 cm proximal from the Achilles insertion site. Then using a [place] blade, staggered and mik-tenotomy was performed at the medial, lateral and medial aspect of the Achilles tendon sequentially. Then passive ankle joint dorsiflexion was noted at 0 degree neutral. The surgical sites were irrigated with copious saline solution and closed with 4-0 nylon. The attention was then directed to the lateral calcaneus. Under intraoperative x-ray, a provisional calcaneal osteotomy was marked on the skin, at least 1.5 cm posterior to the fibula/peroneal tendons in 1.1 cm anterior to the calcaneal tuberosity. Then a 0.5 to 1 cm full-thickness skin incision was made at the lateral central calcaneal body overlying the provisional osteotomy marked on skin. Then the incision was carried deep to periosteum layer with a mosquito forcep. Then the soft tissue and periosteum layer was elevated off the provisional osteotomy site with a bone elevator. Then Arthrex 3 x 20 mm bur operating at 6000 RPM was introduced to the skin incision. Following four- quadrant MIS osteotomy and under intraoperative x-ray guidance, the posterior tuber of the calcaneus was mobilized without any remarks of medial flexor tendon or neurovascular deficit. Then approximately 0.5 -1 cm medializing shift of the posterior calcaneal tuber was achieved. Using standard AO technique, 2 x 5.0 mm fully threaded screws were used to fix and stabilize the posterior calcaneal tuber fragment. Care was taken and verified that the screws were in adequate length without violating subtalar joint and indeed within the calcaneal tuber upon axial view. The surgical sites were irrigated with copious saline and closed with 4-0 nylon. The attention was then directed to the anterior calcaneal process. A curvilinear incision was made over lying the dorsal lateral aspect of the anterior process extending from the CC joint to the middle facet of the subtalar joint. Incision was carried deep with a combination of sharp and blunt dissection with care to protect and retract all the neurovascular bundles. The peroneal tendons were carefully retracted plantarly and protected in the anterior talar process was visualized. A guidepin was introduced from lateral to medial parallel to the CC joint and also perpendicular to the lateral calcaneal wall, proximally 1.3 cm proximal to the CC joint but also found anterior to the middle subtalar facet based on intraoperative x-ray. Then a sagittal saw was used to osteomize along the guidepin with care to protect and preserve the medial cortex. The osteotomy site was opened up with a pin distrac tor and a 10 mm lateral based wedge was measured and determined fit to achieve a straight lateral column. Care was taken to assure the anterior calcaneal fragment did not migrate dorsally and the CC joint was preserved. The metallic graft was also tempted in and fitted well without any prominence circumferentially. Then the metallic graft was stabilized with an Intra-plant fully threaded metallic screw, 2.4mm, to prevent graft migration. Then the surgical site was irrigated with copious saline solution and closed in layers with 4-0 Monocryl and 4-0 nylon. Then the attention was directed to the dorsal first cuneiform. A linear i ncision was made medial to the EHL overlying the first cuneiform. The incision was carried to deep with a combination of sharp and blunt dissection with care to protect and retract all the neurovascular bundles. Then a guidepin was introduced from dorsal to plantar at the midportion of the first cuneiform parallel to the first TMT. Adequate and satisfactory hardware placement was confirmed on x-ray and then a sagittal saw was used to osteotomize the dorsal first cuneiform with care to preserve the plantar cortex and the second metatarsal base. A 7.5 mm metallic graft was used to achieve adequate plantar flexion at the first ray and medial column and the forefoot was noted balanced to the right foot. A metallic staple, 18 x18mmm, was used to affix the metallic wedge graft without any palpable osseous or graft prominence dorsally through skin. Adequate hardware placement position was noted without any violation to the neighboring joints based on x-ray. At this time, we noted the venous tourniquet was causing nonpulsating bleeding to the surgical site. Antithrombin powder and Surgicel were used intraoperatively for hemostasis with compression for 5 minutes. Tourniquet was deflated at this time. Afterwards, adequate hemostasis was achieved. Then the incision was made along the PT tendon extending from the medial navicular tuberosity to the posterior medial malleolus. Care was taken to deepen the incision to the layer of PT tendon sheath with care to protect and retract all the neurovascular bundles. A linear capsulotomy was made along the PT tendon sheath to visualize the tendon. At this time, we found significant tenosynovitis without any intrasubstance tearing and degeneration along the PT tendon. the tendon sheath was decompressed and irrigated. the remaining PT tendon was noted healthy. the decision was made against FDL tendon transfer. Then the retinaculum was repaired with 2-0 Vicryl with the foot held inverted and dorsiflexed. Then the surgical sites was irrigated with copious saline solution. The skin was closed with a combination of 4 Monocryl and 4 nylon. All the surgical sites were dressed with Xeroform, 4 x4 gauze, ABD. The left lower extremity was immobilized in a well-padded Miller compression splint with ankle held near 90 degrees dorsiflexion. Tourniquet was deflated and adequate digital perfusion was noted. Patient tolerated anesthesia procedure well with neurovascular status intact and vital signs stable. Patient was then transferred to PACU for continuous recovery. Pending left foot and ankle XR. PARDEEP NOBLE DPM Dec 30, 2021 13:34
[2021-12-30] MEDS ORDERED: oxyCODONE/APAP 5/325 1 TAB TABLET PO ONE (13:45)
[2021-12-30] MEDS ORDERED: ACETAMINOPHEN 325 MG TABLET. PO ONE (13:45)
[2021-12-30] MEDS ORDERED: GABAPENTIN 100 MG CAPSULE. PO ONE (13:45)
[2021-12-30] MEDS: fentaNYL PF VIAL 100 MCG/2 ML VIAL IVP PRN ×2 (14:43→15:10)
[2021-12-30 15:21] VITALS: BP 101/82
--- NOTE | 2021-12-30 15:43 | RAD ---
Study: 1. XR EXAM OF ANKLE_LEFT 3V 2. XR FOOT_LEFT 3 VIEWS Indication: Postop. Comparison: 12/17/2021 Findings: Left ankle: Casting material is in place which obscures fine surgical hardware now seen associated with the calca neus and medial cuneiform. No hardware complication is identified. Osseous detail. Symmetric ankle mo rtise considering the absence of weightbearing. Grossly intact malleoli. Maintained ankle joint space height. Left foot: Casting material is in place which obscures fine osseous detail. Interval operative changes involving the calcaneus and medial cuneiform. No hardware complication which appears well-positioned. Pre-exis ting surgical screws at the distal first metatarsal are intact. Impression: Left ankle and left foot: Within normal limits postoperative appearance of the calcaneus and medial cuneiform status post inter silke surgery. No newly seen abnormality of the ankle. Electronically signed by: GILBERT MURPHY MD (12/30/2021 3:40 PM) [facility]
== END 2021-12-30 15:43 | disposition home or self-care (01) ==
LOC: SURG 07:51
PROVIDERS: ATTEND Podiatrist
DX: M21.42 Flat foot [pes planus] (acquired), left foot (principal); M76.822 Posterior tibial tendinitis, left leg; K21.9 Gastro-esophageal reflux disease without esophagitis; E66.9 Obesity, unspecified; E03.9 Hypothyroidism, unspecified; E11.9 Type 2 diabetes mellitus without complications; F41.9 Anxiety disorder, unspecified; M19.90 Unspecified osteoarthritis, unspecified site; Z79.899 Other long term (current) drug therapy; Z98.890 Other specified postprocedural states
CPT/HCPCS: 27606; 28300; 28304; 73610; 73630; 82962; A4930; A6223; A6253; A6258; A6402; A6449; A6450; C1713; J0690; J1100; J1170; J2250; J2370; J2405; J2704; J2795; J3010; J3490; A4222